=== PATIENT | male | born 1960 | race African-American/Black ===

== ENCOUNTER 2018-02-18 12:55 | Inpatient (IN) | payer OTHER ==
[~2018-02-18] VITALS: Ht 180.3 cm; Wt 79.8 kg
[2018-02-18] MEDS ORDERED: LITHIUM (13:00)
[2018-02-18] MEDS ORDERED: CHLORDIAZEPOXIDE 25MG CAPSULE PO ONE (14:15)
[2018-02-18] MEDS ORDERED: LORAZEPAM 2MG/ML CPJ IV ONE (14:15)
[2018-02-18 14:17] LABS: BASOPHILS % 0.3 % (0.0-2.0); EOSINOPHILS % 0.7 % (0.0-5.0); HEMATOCRIT. 39.6 % (42.0-52.0); HEMOGLOBIN. 13.5 g/dL (14.0-18.0); MEAN CORPUSCULAR HEMOGLOBIN 31.8 pg (28.0-32.0); MEAN CORPUSCULAR VOLUME 93.3 fL (80.0-94.0); MEAN PLATELET VOLUME 8.4 fl (7.4-10.4); MONOCYTES % 5.3 % (2.0-8.0); NEUTROPHILS % 73.7 % (40.0-76.0); PLATELET 165 x1000/uL (130-400); RED BLOOD CELL COUNT 4.24 mill/uL (4.7-6.1); RED CELL DISTRIBUTION WIDTH 18.2 % (11.6-14.6)
[2018-02-18 14:19] LABS: CHLORIDE 93 mEq/L (98-107)
[2018-02-18 14:26] LABS: ETHANOL BLOOD < 10 mg/dL
[2018-02-18 14:32] LABS: PHENOBARBITAL < 2.1 ug/mL (15.0-40.0)
[2018-02-18 14:33] LABS: CARBAMAZEPINE < 0.5 ug/mL (4-12)
[2018-02-18] MEDS ORDERED: LEVETIRACETAM 1000MG/100ML 100 ML IV ONE (15:30)
[2018-02-18] MEDS ORDERED: MULTIVITAMINS,THER W-MINERALS TABLET PO STA (15:47)
[2018-02-18 18:32] LABS: CLARITY URINE CLEAR (CLEAR); COLOR URINE YELLOW (YELLOW); KETONES URINE 3+ (NEGATIVE); LEUKOCYTE ESTERASE URINE NEGATIVE (NEGATIVE); NITRITE URINE NEGATIVE (NEGATIVE); OCCULT BLOOD URINE 2+ (NEGATIVE); PH URINE 6.5 (4.5-8.0); PROTEIN URINE 4+ (NEGATIVE)
[2018-02-18] MEDS ORDERED: ACETAMINOPHEN 325MG TABLET PO PRN (18:45)
[2018-02-18] MEDS ORDERED: CLONIDINE 0.1MG TABLET PO PRN (18:45)
[2018-02-18] MEDS ORDERED: DIPHENHYDRAMINE 50MG/ML VIAL IV PRN (18:45)
[2018-02-18] MEDS ORDERED: MVI, ADULT NO.1 10 ML, FOLIC ACID 1 MG, THIAMINE HCL 100 MG in SODIUM CHLORIDE 0.9% 1,0... IV SCH ×4 (18:45)
[2018-02-18] MEDS ORDERED: ONDANSETRON HCL 4MG/2ML VIAL IV PRN (18:45)
[2018-02-18 18:49] LABS: *AMPHETAMINES SCREEN URINE NEGATIVE (NEGATIVE); *BARBITURATES SCREEN URINE NEGATIVE (NEGATIVE); *BENZODIAZEPINES SCREEN URINE NEGATIVE (NEGATIVE); *COCAINE SCREEN URINE NEGATIVE (NEGATIVE); METHADONE URINE SCREEN NEGATIVE (NEGATIVE); OPIATES URINE SCREEN PRESUMTIVE POSITIVE (NEGATIVE)
[2018-02-18 18:50] LABS: CANNABINOID URINE SCREEN NEGATIVE (NEGATIVE); PHENCYCLIDINE URINE SCREEN NEGATIVE (NEGATIVE)
[2018-02-18] MEDS ORDERED: HYDRALAZINE 20MG/ML VIAL IV PRN (19:00)
[2018-02-18] MEDS ORDERED: MAGNESIUM/ALUMINUM HYDROXIDE/SIMETHICONE 30ML UDC PO PRN (19:15)
[2018-02-18] MEDS ORDERED: MAGNESIUM 2 G PREMIX 50 ML IV ONE (19:30)
[2018-02-18] MEDS: LORAZEPAM 2MG/ML CPJ IV PRN (21:45)
[2018-02-18 23:00] VITALS: BP 151/107
[2018-02-18] MEDS ORDERED: DEXTROSE 50% WATER 50ML SYRINGE IV PRN (23:45)
[2018-02-19] VITALS (7 sets, daily range): BP systolic 124–151; BP diastolic 87–107
[2018-02-19] MEDS: LORAZEPAM 2MG/ML CPJ IV PRN (00:48)
[2018-02-19] MEDS: CHLORDIAZEPOXIDE 25MG CAPSULE PO SCH ×4 (05:48→21:46)
[2018-02-19] MEDS: OMEPRAZOLE 20MG CAPSULE EXTENDED RELEASE PO SCH ×2 (06:18)
[2018-02-19] MEDS: SODIUM CHL 0.9% + KCL 20MEQ/L 1,000 ML IV SCH ×2 (06:29→21:46)
[2018-02-19] MEDS: INSULIN LISPRO 100 UNITS/ML SUBCUT SCH ×3 (06:40→16:39)
[2018-02-19] MEDS: BLOOD SUGAR DIAGNOSTIC STRIP TEST SCH ×3 (06:40→16:38)
[2018-02-19 07:20] LABS: BASOPHILS % 0.4 % (0.0-2.0); EOSINOPHILS % 0.8 % (0.0-5.0); HEMATOCRIT. 38.1 % (42.0-52.0); LYMPHOCYTES % 30.2 % (20.0-50.0); MEAN CORPUSCULAR HEMOGLOBIN 31.5 pg (28.0-32.0); MEAN CORPUSCULAR VOLUME 92.3 fL (80.0-94.0); MEAN PLATELET VOLUME 8.4 fl (7.4-10.4); MONOCYTES % 8.3 % (2.0-8.0); NEUTROPHILS % 60.3 % (40.0-76.0); PLATELET 150 x1000/uL (130-400); RED BLOOD CELL COUNT 4.13 mill/uL (4.7-6.1); RED CELL DISTRIBUTION WIDTH 18.2 % (11.6-14.6)
[2018-02-19 07:51] LABS: CHLORIDE 100 mEq/L (98-107)
[2018-02-19 08:01] LABS: PHOSPHORUS 1.5 mg/dL (2.5-4.9)
[2018-02-19] MEDS: AMLODIPINE 5MG TABLET PO SCH ×2 (08:24→21:46)
[2018-02-19] MEDS ORDERED: LEVETIRACETAM 500MG PREMIX 100 ML IV SCH (09:00)
[2018-02-19] MEDS ORDERED: POTASSIUM CHLORIDE 20MEQ TABLET SR PO NR (11:00)
[2018-02-19] MEDS ORDERED: POTASSIUM PHOS,M-BASIC-D-BASIC 20 MMOL in DEXT 5% WATER 243.3333 ML IV NR (12:30)
[2018-02-19] MEDS: FAMOTIDINE 20MG TABLET PO SCH (21:46)
[2018-02-19] MEDS: LEVETIRACETAM 500MG PREMIX 100 ML IV SCH (22:46)
[2018-02-20] VITALS (7 sets, daily range): BP systolic 117–141; BP diastolic 59–93
[2018-02-20] MEDS: CHLORDIAZEPOXIDE 25MG CAPSULE PO SCH ×3 (06:52→20:53)
[2018-02-20 08:14] LABS: BASOPHILS % 0.8 % (0.0-2.0); CHLORIDE 107 mEq/L (98-107); EOSINOPHILS % 2.5 % (0.0-5.0); HEMATOCRIT. 35.4 % (42.0-52.0); LYMPHOCYTES % 40.7 % (20.0-50.0); MEAN CORPUSCULAR HEMOGLOBIN 31.6 pg (28.0-32.0); MEAN CORPUSCULAR VOLUME 93.1 fL (80.0-94.0); MONOCYTES % 7.7 % (2.0-8.0); NEUTROPHILS % 48.3 % (40.0-76.0); PLATELET 139 x1000/uL (130-400); RED CELL DISTRIBUTION WIDTH 18.6 % (11.6-14.6)
[2018-02-20 08:24] LABS: PHOSPHORUS 2.2 mg/dL (2.5-4.9)
[2018-02-20] MEDS: LEVETIRACETAM 500MG PREMIX 100 ML IV SCH (09:00)
[2018-02-20] MEDS: FAMOTIDINE 20MG TABLET PO SCH ×2 (09:00→20:53)
[2018-02-20] MEDS: AMLODIPINE 5MG TABLET PO SCH ×2 (09:00→20:53)
[2018-02-20] MEDS ORDERED: POTASSIUM CHLORIDE 20MEQ TABLET SR PO NR (10:30)
[2018-02-20] MEDS ORDERED: MAGNESIUM 2 G PREMIX 50 ML IV NR (12:00)
[2018-02-20] MEDS ORDERED: POTASSIUM PHOS,M-BASIC-D-BASIC 20 MMOL in DEXT 5% WATER 243.3333 ML IV SCH (12:00)
== END 2018-02-21 00:01 | disposition short-term general hospital (02) | DRG 100 ==
LOC: ER 13:09 → CANRESERV 20:58 → ENRESERV 20:58 → UNDOADMIN 23:10 → 8WST 23:10 → CANBEDREQ 02-19 00:42
PROVIDERS: ADMIT Internal Medicine; ATTEND Internal Medicine
DX: G40.909 Epilepsy, unspecified, not intractable, without status epilepticus (principal); G92 Toxic encephalopathy; F10.231 Alcohol dependence with withdrawal delirium; E87.1 Hypo-osmolality and hyponatremia; W18.39XA Other fall on same level, initial encounter; E83.42 Hypomagnesemia; E87.6 Hypokalemia; I10 Essential (primary) hypertension; Z72.0 Tobacco use; Z79.899 Other long term (current) drug therapy; Y93.89 Activity, other specified; Y92.89 Other specified places as the place of occurrence of the external cause; Y99.8 Other external cause status
CPT/HCPCS: 36415; 70486; 80048; 80053; 80156; 80165; 80184; 80185; 80305; 81003; 82962; 83036; 83735; 84100; 85025; 93970; G0482; J1953; J2060; J3411; J3475; J3480; J3490; J7030; J7040; J7060

== ENCOUNTER 2018-07-03 09:07 | Emergency (ER) | payer MEDICAID ==
[~2018-07-03] VITALS: Ht 182.9 cm; Wt 67.0 kg
[~2018-07-03 09:07] MED LIST: LITHIUM PO
[2018-07-03 13:21] LABS: BASOPHILS % 1.1 % (0.0-2.0); EOSINOPHILS % 2.1 % (0.0-5.0); HEMATOCRIT. 39.1 % (42.0-52.0); HEMOGLOBIN. 13.1 g/dL (14.0-18.0); LYMPHOCYTES % 62.1 % (20.0-50.0); MEAN CORPUSCULAR HEMOGLOBIN 32.4 pg (28.0-32.0); MEAN CORPUSCULAR VOLUME 96.5 fL (80.0-94.0); MEAN PLATELET VOLUME 7.6 fl (7.4-10.4); MONOCYTES % 6.7 % (2.0-8.0); PLATELET 173 x1000/uL (130-400); RED BLOOD CELL COUNT 4.05 mill/uL (4.7-6.1); RED CELL DISTRIBUTION WIDTH 17.7 % (11.6-14.6)
[2018-07-03 13:33] LABS: CHLORIDE 107 mEq/L (98-107)
[2018-07-03 13:42] LABS: CREATINE KINASE 242 IU/L (39-308)
[2018-07-03 14:04] LABS: ETHANOL BLOOD 475 mg/dL
[2018-07-03 17:11] VITALS: BP 125/87
== END 2018-07-03 17:13 | disposition home or self-care (01) ==
LOC: ER 09:07
DX: F10.129 Alcohol abuse with intoxication, unspecified (principal); Y90.8 Blood alcohol level of 240 mg/100 ml or more; R03.0 Elevated blood-pressure reading, without diagnosis of hypertension; R73.9 Hyperglycemia, unspecified
CPT/HCPCS: 36415; 70450; 80053; 82550; 82962; 85025; 99285; G0482; J7030; Z7610

== ENCOUNTER 2018-11-05 18:36 | Inpatient (IN) | payer MEDICAID ==
[~2018-11-05] VITALS: Ht 172.7 cm; Wt 71.0 kg
[2018-11-05] MEDS ORDERED: SODIUM CHLORIDE 0.9% 1,000 ML IV ONE (18:47)
[2018-11-05] MEDS ORDERED: ADENOSINE 3 MG/ML 2ML VIAL IV ONE (18:48)
[2018-11-05] MEDS ORDERED: DILTIAZEM HCL 5MG/ML 5ML VIAL IV ONE (19:00)
[2018-11-05 19:33] LABS: BASOPHILS % 0.4 % (0.0-2.0); CHLORIDE 99 mEq/L (98-107); HEMATOCRIT. 35.5 % (42.0-52.0); HEMOGLOBIN. 11.9 g/dL (14.0-18.0); LYMPHOCYTES % 13.3 % (20.0-50.0); MEAN CORPUSCULAR HEMOGLOBIN 31.9 pg (28.0-32.0); MEAN CORPUSCULAR VOLUME 95.4 fL (80.0-94.0); MEAN PLATELET VOLUME 8.1 fl (7.4-10.4); MONOCYTES % 5.5 % (2.0-8.0); NEUTROPHILS % 80.8 % (40.0-76.0); PLATELET 131 x1000/uL (130-400); RED BLOOD CELL COUNT 3.71 mill/uL (4.7-6.1); RED CELL DISTRIBUTION WIDTH 14.9 % (11.6-14.6)
[2018-11-05 19:35] LABS: INR 1.1; PROTHROMBIN TIME 10.8 sec (9.1-11.1)
[2018-11-05 19:37] LABS: ETHANOL BLOOD < 10 mg/dL
[2018-11-05] MEDS ORDERED: SODIUM CHLORIDE 0.9% 1000ML BAG (SEPSIS BOLUS) IV ONE (20:00)
[2018-11-05 20:37] LABS: CLARITY URINE CLEAR (CLEAR); COLOR URINE YELLOW (YELLOW); KETONES URINE TRACE (NEGATIVE); LEUKOCYTE ESTERASE URINE NEGATIVE (NEGATIVE); NITRITE URINE NEGATIVE (NEGATIVE); OCCULT BLOOD URINE 1+ (NEGATIVE); PROTEIN URINE 2+ (NEGATIVE); UROBILINOGEN URINE 0.2 E.U./dL (0.2-1.0)
[2018-11-05 22:45] VITALS: BP 179/96
[2018-11-05 23:00] VITALS: BP 172/117
[2018-11-05] MEDS ORDERED: ASPIRIN 325MG EC TABLET PO ONE (23:00)
[2018-11-05] MEDS ORDERED: LORA-250 MT (23:29)
[2018-11-05] MEDS ORDERED: AMLO2.5T45 MT (23:30)
[2018-11-05] MEDS ORDERED: CLONIDINE 0.1MG TABLET PO PRN (23:30)
[2018-11-05] MEDS ORDERED: HYDRALAZINE 20MG/ML VIAL IV PRN (23:30)
[2018-11-05] MEDS ORDERED: ONDANSETRON HCL 4MG/2ML INJ IV PRN (23:30)
[2018-11-05] MEDS ORDERED: ACETAMINOPHEN 325MG TABLET PO PRN (23:30)
[2018-11-05] MEDS: LORAZEPAM 2MG/ML CPJ IV PRN (23:51)
[2018-11-06] MEDS ORDERED: MVI, ADULT NO.1 10 ML, FOLIC ACID 1 MG, THIAMINE HCL 100 MG in SODIUM CHLORIDE 0.9% 1,0... IV NR ×4 (02:00)
[2018-11-06] MEDS ORDERED: LEVETIRACETAM 500 MG in SODIUM CHLORIDE 0.9% 100 ML IV SCH (02:45)
[2018-11-06 04:00] VITALS: BP 143/92
[2018-11-06 05:00] VITALS: BP 142/78
[2018-11-06] MEDS: LEVETIRACETAM 500 MG in SODIUM CHLORIDE 0.9% 100 ML IV SCH ×2 (05:09→22:09)
[2018-11-06] MEDS: DILTIAZEM HCL 90MG TABLET PO SCH ×3 (05:09→22:00)
[2018-11-06] MEDS: LORAZEPAM 2MG/ML CPJ IV PRN (06:46)
[2018-11-06 07:04] LABS: BASOPHILS % 0.4 % (0.0-2.0); EOSINOPHILS % 0.2 % (0.0-5.0); HEMATOCRIT. 35.6 % (42.0-52.0); HEMOGLOBIN. 11.9 g/dL (14.0-18.0); LYMPHOCYTES % 37.3 % (20.0-50.0); MEAN CORPUSCULAR HEMOGLOBIN 31.5 pg (28.0-32.0); MEAN CORPUSCULAR VOLUME 94.8 fL (80.0-94.0); MEAN PLATELET VOLUME 8.6 fl (7.4-10.4); MONOCYTES % 7.8 % (2.0-8.0); NEUTROPHILS % 54.3 % (40.0-76.0); PLATELET 116 x1000/uL (130-400); RED BLOOD CELL COUNT 3.76 mill/uL (4.7-6.1)
[2018-11-06 07:54] LABS: CHLORIDE 99 mEq/L (98-107)
[2018-11-06 08:00] VITALS: BP 124/75
[2018-11-06 08:07] LABS: PHOSPHORUS 3.2 mg/dL (2.5-4.9)
[2018-11-06] MEDS ORDERED: POTASSIUM CHLORIDE 20MEQ/PACKET PO NR ×2 (09:30→14:00)
[2018-11-06] MEDS: LOSARTAN POTASSIUM 50 MG TABLET PO SCH (09:45)
[2018-11-06] MEDS: DEXT 5%/0.45% NACL KCL 40MEQ/L 1,000 ML IV SCH ×2 (09:46→22:09)
[2018-11-06] MEDS ORDERED: MAGNESIUM 2 G PREMIX 50 ML IV NR (11:00)
[2018-11-06 12:00] VITALS: BP 124/79
[2018-11-06 16:00] VITALS: BP 124/84
[2018-11-06] MEDS ORDERED: POTASSIUM CHLORIDE 20MEQ TABLET SR PO NR (18:00)
[2018-11-06 20:00] VITALS: BP 105/71
[2018-11-07] VITALS (7 sets, daily range): BP systolic 102–142; BP diastolic 71–94
[2018-11-07] MEDS: LORAZEPAM 2MG/ML CPJ IV PRN ×3 (02:44→20:53)
[2018-11-07] MEDS: DIPHENHYDRAMINE 50MG/ML VIAL IV PRN ×2 (03:49→20:58)
[2018-11-07] MEDS: DILTIAZEM HCL 90MG TABLET PO SCH ×3 (05:13→23:03)
[2018-11-07 07:54] LABS: CHLORIDE 105 mEq/L (98-107)
[2018-11-07] MEDS ORDERED: ENOXAPARIN 40MG/0.4ML SYR SUBCUT SCH (09:00)
[2018-11-07] MEDS: LOSARTAN POTASSIUM 50 MG TABLET PO SCH (09:36)
[2018-11-07] MEDS: LEVETIRACETAM 500 MG in SODIUM CHLORIDE 0.9% 100 ML IV SCH (09:36)
[2018-11-07] MEDS: DEXT 5%/0.45% NACL KCL 40MEQ/L 1,000 ML IV SCH (09:37)
[2018-11-07] MEDS ORDERED: POTASSIUM CHLORIDE 20MEQ TABLET SR PO NR ×2 (10:30)
[2018-11-07] MEDS ORDERED: MAGNESIUM 2 G PREMIX 50 ML IV NR ×2 (12:00)
[2018-11-07] MEDS ORDERED: LEVETIRACETAM 500MG TABLET PO SCH (21:00)
== END 2018-11-07 23:33 | disposition short-term general hospital (02) | DRG 53 ==
LOC: ER 18:53 → 5WST 20:29 → EDBEDREQ 20:41 → EDBEDREQTM 20:41 → ENRESERV 21:25
PROVIDERS: ADMIT Internal Medicine; ATTEND Internal Medicine
DX: G40.909 Epilepsy, unspecified, not intractable, without status epilepticus (principal); F10.231 Alcohol dependence with withdrawal delirium; I47.1 Supraventricular tachycardia; E87.6 Hypokalemia; I10 Essential (primary) hypertension; J45.909 Unspecified asthma, uncomplicated; Z72.0 Tobacco use
CPT/HCPCS: 36415; 71045; 80048; 83605; 83735; 83880; 84100; 84484; 93005; 99291; G0482; J0153; J1200; J1650; J1953; J2060; J2405; J3411; J3475; J3490; J7030; J7040; J7050

== ENCOUNTER 2019-02-27 18:04 | Emergency (ER) | payer MEDICAID ==
[~2019-02-27] VITALS: Ht 406.4 cm; Wt 82.0 kg
[~2019-02-27 18:04] MED LIST changes: +AMLO2.5T45 MT; -LITHIUM PO; +LORA-250 MT
[2019-02-27] MEDS ORDERED: LEVETIRACETAM 1000MG/100ML 100 ML IV ONE (18:30)
[2019-02-27] MEDS ORDERED: CLONIDINE 0.2MG TABLET PO ONE (18:30)
[2019-02-27 19:11] LABS: BASOPHILS % 0.3 % (0.0-2.0); EOSINOPHILS % 0.1 % (0.0-5.0); HEMATOCRIT. 34.6 % (42.0-52.0); HEMOGLOBIN. 11.7 g/dL (14.0-18.0); LYMPHOCYTES % 7.7 % (20.0-50.0); MEAN CORPUSCULAR HEMOGLOBIN 31.2 pg (28.0-32.0); MEAN PLATELET VOLUME 8.5 fl (7.4-10.4); MONOCYTES % 3.6 % (2.0-8.0); NEUTROPHILS % 88.3 % (40.0-76.0); PLATELET 105 x1000/uL (130-400); RED BLOOD CELL COUNT 3.76 mill/uL (4.7-6.1); RED CELL DISTRIBUTION WIDTH 16.9 % (11.6-14.6)
[2019-02-27 19:13] LABS: CHLORIDE 99 mEq/L (98-107)
[2019-02-27 19:17] LABS: ETHANOL BLOOD < 10 mg/dL
[2019-02-27] MEDS ORDERED: ONDANSETRON HCL 4MG/2ML INJ IV ONE (19:45)
[2019-02-27] MEDS ORDERED: LIDOCAINE 1%/EPI 1:100,000 10 ML VIAL IJ ONE (20:45)
[2019-02-27] MEDS ORDERED: HYDRALAZINE 20MG/ML VIAL IV ONE (21:30)
[2019-02-27] MEDS ORDERED: ETOMIDATE 2MG/ML 10ML VIAL IV ONE (21:30)
[2019-02-27] MEDS ORDERED: SODIUM CHLORIDE 0.9% 1000ML BAG (SEPSIS BOLUS) IV ONE (21:30)
[2019-02-27] MEDS ORDERED: CEFTRIAXONE 1 G PREMIX 50 ML IV ONE (21:30)
[2019-02-27] MEDS ORDERED: SUCCINYLCHOLINE CHLORIDE 200MG/10ML IV ONE (21:30)
[2019-02-27] MEDS ORDERED: PROPOFOL 10MG/ML 100ML 100 ML IV ONE (21:48)
[2019-02-27] MEDS ORDERED: LORAZEPAM 2MG/ML CPJ IV ONE (22:15)
[2019-02-27 23:29] LABS: BG BASE EXCESS 2.2 mmol/L (-2.0-2.0); BG CARBOXYHEMOGLOBIN 0.3 % (0.5-1.5); BG DEOXYHEMOGLOBIN 0.5 % (0.0-5.0); BG FRACTION INSPIRED OXYGEN 100; BG HCO3 ACT 26.3 mmol/L (22.0-26.0); BG METHEMOGLOBIN 0.6 % (0.0-1.5); BG OXYGEN SATURATION 99.5 % (92.0-98.5); BG OXYHEMOGLOBIN 98.6 % (94.0-97.0); BG PCO2 39.4 mmHg (35.0-45.0); BG PH 7.443 (7.350-7.450); BG PO2 317.1 mmHg (75.0-100.0); BG SAMPLE SITE RIGHT BRACHIAL; BG TIDAL VOLUME(mL) 450 mL; BG TOTAL HEMOGLOBIN 11.1 g/dL (12.0-18.0); BG VENT MODE VENT - A/C; BG VENT RATE 24 set
[2019-02-28 01:52] VITALS: BP 126/83
[2019-02-28] MEDS ORDERED: MANNITOL 12.5G (25%) VIAL 50ML IV ONE (02:00)
[2019-02-28] MEDS ORDERED: PROPOFOL 10MG/ML 100ML 100 ML IV ONE (02:41)
== END 2019-02-28 03:58 | disposition short-term general hospital (02) ==
LOC: ER 18:04 → CANBEDREQ 02-28 04:27
DX: S02.40EA Zygomatic fracture, right side, initial encounter for closed fracture (principal); S01.511A Laceration without foreign body of lip, initial encounter; R56.9 Unspecified convulsions; I62.00 Nontraumatic subdural hemorrhage, unspecified; I60.9 Nontraumatic subarachnoid hemorrhage, unspecified; I16.9 Hypertensive crisis, unspecified; I10 Essential (primary) hypertension; R79.89 Other specified abnormal findings of blood chemistry; Z79.899 Other long term (current) drug therapy; X58.XXXA Exposure to other specified factors, initial encounter; Y93.89 Activity, other specified; Y92.89 Other specified places as the place of occurrence of the external cause; Y99.8 Other external cause status
CPT/HCPCS: 12011; 31500; 36415; 36600; 70450; 70487; 71045; 72125; 80053; 80320; 82375; 82805; 83605; 84484; 85025; 87040; 93005; 94002; 96374; 96375; 99291; J0330; J0696; J1953; J2150; J2405; J2704; J3490; J7030; Z7610; A4315; G0480

== ENCOUNTER 2020-06-16 14:10 | Emergency (ER) | payer MEDICAID ==
[~2020-06-16] VITALS: Ht 177.8 cm; Wt 77.0 kg
[2020-06-16] MEDS ORDERED: LABETALOL 5MG/ML SYR 20 MG/4 ML SYRINGE IV ONE (14:30)
[2020-06-16] MEDS ORDERED: LORAZEPAM 2MG/ML CPJ IV ONE (14:45)
[2020-06-16 14:50] LABS: BASOPHILS % 0.4 % (0.0-2.0); EOSINOPHILS % 0.4 % (0.0-5.0); HEMATOCRIT. 37.5 % (42.0-52.0); HEMOGLOBIN. 12.4 g/dL (14.0-18.0); LYMPHOCYTES % 29.5 % (20.0-50.0); MEAN CORPUSCULAR HEMOGLOBIN 29.1 pg (28.0-32.0); MEAN CORPUSCULAR VOLUME 88.3 fL (80.0-94.0); MEAN PLATELET VOLUME 7.6 fl (7.4-10.4); MONOCYTES % 4.2 % (2.0-8.0); NEUTROPHILS % 65.5 % (40.0-76.0); PLATELET 208 x1000/uL (130-400); RED BLOOD CELL COUNT 4.25 mill/uL (4.7-6.1); RED CELL DISTRIBUTION WIDTH 13.3 % (11.6-14.6)
[2020-06-16 14:58] LABS: CHLORIDE 106 mEq/L (98-107)
[2020-06-16 15:02] LABS: CLARITY URINE CLEAR (CLEAR); COLOR URINE YELLOW (YELLOW); KETONES URINE NEGATIVE (NEGATIVE); LEUKOCYTE ESTERASE URINE NEGATIVE (NEGATIVE); NITRITE URINE NEGATIVE (NEGATIVE); OCCULT BLOOD URINE NEGATIVE (NEGATIVE); PROTEIN URINE 2+ (NEGATIVE); SPECIFIC GRAVITY URINE 1.021 (1.005-1.030); UROBILINOGEN URINE 0.2 E.U./dL (0.2-1.0)
[2020-06-16 15:04] LABS: ETHANOL BLOOD 67 mg/dL
[2020-06-16 15:29] LABS: *AMPHETAMINES SCREEN URINE NEGATIVE (NEGATIVE); *BARBITURATES SCREEN URINE NEGATIVE (NEGATIVE); *BENZODIAZEPINES SCREEN URINE NEGATIVE (NEGATIVE); *COCAINE SCREEN URINE NEGATIVE (NEGATIVE); METHADONE URINE SCREEN NEGATIVE (NEGATIVE); PHENCYCLIDINE URINE SCREEN NEGATIVE (NEGATIVE)
[2020-06-16 15:30] LABS: CANNABINOID URINE SCREEN NEGATIVE (NEGATIVE); OPIATES URINE SCREEN PRESUMTIVE POSITIVE (NEGATIVE)
[2020-06-16] MEDS ORDERED: HYDRALAZINE 20MG/ML VIAL IV ONE (16:15)
[2020-06-16] MEDS ORDERED: HYDRALAZINE 20MG/ML VIAL ONE (16:18)
[2020-06-16 16:49] VITALS: BP 194/117
[2020-06-16] MEDS ORDERED: AMLO10TA4 PO (23:38)
[2020-06-16] MEDS ORDERED: KEPP500 PO (23:38)
[2020-06-16] MEDS ORDERED: CYM20 PO (23:38)
[2020-06-16] MEDS ORDERED: METO-385 PO (23:38)
[2020-06-16] MEDS ORDERED: ATOR20TA65 PO (23:38)
[2020-06-16] MEDS ORDERED: LISI-604 PO (23:38)
[2020-06-16] MEDS ORDERED: FOLI-43 PO (23:38)
== END 2020-06-16 17:44 | disposition short-term general hospital (02) ==
LOC: ER 14:19
DX: R06.00 Dyspnea, unspecified (principal); I16.0 Hypertensive urgency; I10 Essential (primary) hypertension; R56.9 Unspecified convulsions; Z86.73 Personal history of transient ischemic attack (TIA), and cerebral infarction without residual deficits
CPT/HCPCS: 36415; 71045; 80053; 80305; 80320; 81003; 83690; 83735; 83880; 84484; 85025; 93005; 96374; 96375; 99285; J0360; J2060; J3490; G0480

== ENCOUNTER 2020-06-16 17:42 | Inpatient (IN) | payer MEDICAID ==
[~2020-06-16] VITALS: Ht 180.3 cm; Wt 76.3 kg
[2020-06-16] MEDS ORDERED: SODIUM CHLORIDE 0.9% 1,000 ML IV ONE (17:48)
[2020-06-16] MEDS ORDERED: LEVETIRACETAM 1000MG/100ML 100 ML IV ONE (18:00)
[2020-06-16] MEDS ORDERED: LORAZEPAM 2MG/ML CPJ IV ONE (18:00)
[2020-06-16] MEDS ORDERED: LABETALOL 5MG/ML SYR 20 MG/4 ML SYRINGE IV ONE (18:00)
[2020-06-16 18:24] LABS: BASOPHILS % 0.4 % (0.0-2.0); EOSINOPHILS % 0.2 % (0.0-5.0); HEMOGLOBIN. 12.4 g/dL (14.0-18.0); LYMPHOCYTES % 26.9 % (20.0-50.0); MEAN CORPUSCULAR HEMOGLOBIN 29.3 pg (28.0-32.0); MEAN CORPUSCULAR VOLUME 89.5 fL (80.0-94.0); MONOCYTES % 4.2 % (2.0-8.0); NEUTROPHILS % 68.3 % (40.0-76.0); PLATELET 201 x1000/uL (130-400); RED BLOOD CELL COUNT 4.24 mill/uL (4.7-6.1); RED CELL DISTRIBUTION WIDTH 13.3 % (11.6-14.6)
[2020-06-16 18:32] LABS: CHLORIDE 105 mEq/L (98-107)
[2020-06-16 18:35] LABS: ETHANOL BLOOD < 10 mg/dL
[2020-06-16 18:40] LABS: CREATINE KINASE 341 IU/L (39-308)
[2020-06-16] MEDS ORDERED: ONDANSETRON HCL 4MG/2ML INJ IV PRN (19:30)
[2020-06-16] MEDS ORDERED: LORAZEPAM 2MG/ML CPJ IV PRN (19:30)
[2020-06-16] MEDS ORDERED: CLONIDINE 0.1MG TABLET PO PRN (19:30)
[2020-06-16] MEDS: LOSARTAN POTASSIUM 100 MG TABLET PO SCH (19:30)
[2020-06-16] MEDS ORDERED: CHLORDIAZEPOXIDE 25MG CAPSULE PO ONE (19:45)
[2020-06-16] MEDS: LEVETIRACETAM 500MG TABLET PO SCH (21:00)
[2020-06-16 22:15] VITALS: BP 184/96
[2020-06-16] MEDS ORDERED: CYM20 PO (23:38)
[2020-06-16] MEDS ORDERED: ATOR20TA65 PO (23:38)
[2020-06-16] MEDS ORDERED: METO-385 PO (23:38)
[2020-06-16] MEDS ORDERED: FOLI-43 PO (23:38)
[2020-06-16] MEDS ORDERED: LISI-604 PO (23:38)
[2020-06-16] MEDS ORDERED: KEPP500 PO (23:38)
[2020-06-16] MEDS ORDERED: AMLO10TA4 PO (23:38)
[2020-06-16] MEDS: HYDRALAZINE 20MG/ML VIAL IV PRN (23:45)
[2020-06-16] MEDS ORDERED: PNEUMOCOCCAL 23-VAL P-SAC VAC 0.5 ML IM ONE (23:45)
[2020-06-17] VITALS (11 sets, daily range): BP systolic 128–177; BP diastolic 77–98
[2020-06-17] MEDS ORDERED: AMLODIPINE 10MG TABLET PO SCH (08:00)
[2020-06-17] MEDS: LOSARTAN POTASSIUM 100 MG TABLET PO SCH (08:08)
[2020-06-17] MEDS: LEVETIRACETAM 500MG TABLET PO SCH (08:09)
[2020-06-17] MEDS ORDERED: MULTIVITAMINS,THER W-MINERALS TABLET PO SCH (09:00)
[2020-06-17] MEDS ORDERED: FOLIC ACID 1MG TABLET PO SCH (09:00)
[2020-06-17] MEDS ORDERED: THIAMINE HCL 100MG TABLET PO SCH (09:00)
[2020-06-17] MEDS ORDERED: CHLORDIAZEPOXIDE 25MG CAPSULE PO SCH (14:30)
[2020-06-17] MEDS: HYDRALAZINE 20MG/ML VIAL IV PRN (17:44)
== END 2020-06-17 19:20 | disposition short-term general hospital (02) | DRG 53 ==
LOC: ER 17:42 → 3WST 18:34 → ENRESERV 21:04
PROVIDERS: ADMIT Internal Medicine; ATTEND Internal Medicine
DX: G40.909 Epilepsy, unspecified, not intractable, without status epilepticus (principal); D64.9 Anemia, unspecified; F10.239 Alcohol dependence with withdrawal, unspecified; I10 Essential (primary) hypertension; I16.0 Hypertensive urgency; Y90.3 Blood alcohol level of 60-79 mg/100 ml; Z86.73 Personal history of transient ischemic attack (TIA), and cerebral infarction without residual deficits
CPT/HCPCS: 36415; 80053; 80320; 82550; 82962; 84484; 85025; 93005; 99291; J0360; J1953; J2060; J3490; J7030; G0480

== ENCOUNTER 2020-11-28 14:26 | Inpatient (IN) | payer MEDICAID ==
[~2020-11-28] VITALS: Ht 180.3 cm; Wt 80.7 kg
[~2020-11-28 14:26] MED LIST changes: +AMLO10TA4 PO; -AMLO2.5T45 MT; +ATOR20TA65 PO; +CYM20 PO; +FOLI-43 PO; +KEPP500 PO; +LISI-604 PO; -LORA-250 MT; +METO-385 PO
[2020-11-28 16:29] LABS: BASOPHILS % 0.7 % (0.0-2.0); EOSINOPHILS % 0.9 % (0.0-5.0); HEMOGLOBIN. 13.8 g/dL (14.0-18.0); LYMPHOCYTES % 58.4 % (20.0-50.0); MEAN CORPUSCULAR HEMOGLOBIN 30.3 pg (28.0-32.0); MEAN CORPUSCULAR VOLUME 92.2 fL (80.0-94.0); MEAN PLATELET VOLUME 7.2 fl (7.4-10.4); MONOCYTES % 4.1 % (2.0-8.0); NEUTROPHILS % 35.9 % (40.0-76.0); PLATELET 189 x1000/uL (130-400); RED BLOOD CELL COUNT 4.56 mill/uL (4.7-6.1)
[2020-11-28 16:35] LABS: CHLORIDE 102 mEq/L (98-107)
[2020-11-28 16:54] LABS: PARTIAL THROMBOPLASTIN TIME 27.1 sec (23.4-31.0)
[2020-11-28] MEDS ORDERED: DEXAMETHASONE 10 MG/ML VIAL IV ONE (17:00)
[2020-11-28] MEDS ORDERED: AZITHROMYCIN 500 MG in DEXT 5% WATER 250 ML IV ONE (17:00)
[2020-11-28] MEDS ORDERED: CEFTRIAXONE 1 G PREMIX 50 ML IV ONE (17:00)
[2020-11-28 20:53] LABS: CLARITY URINE CLEAR (CLEAR); COLOR URINE YELLOW (YELLOW); KETONES URINE NEGATIVE (NEGATIVE); LEUKOCYTE ESTERASE URINE NEGATIVE (NEGATIVE); NITRITE URINE NEGATIVE (NEGATIVE); OCCULT BLOOD URINE NEGATIVE (NEGATIVE); PROTEIN URINE 2+ (NEGATIVE); SPECIFIC GRAVITY URINE 1.021 (1.005-1.030)
[2020-11-29] MEDS ORDERED: LORAZEPAM 1MG TABLET PO PRN (03:00)
[2020-11-29] MEDS: HALOPERIDOL LACTATE 5MG/ML VIAL IM PRN ×2 (12:03→19:52)
[2020-11-29] MEDS ORDERED: DIPHENHYDRAMINE 50MG/ML VIAL IV PRN (15:15)
[2020-11-29] MEDS ORDERED: LORAZEPAM 2MG/ML CPJ IV PRN (15:15)
[2020-11-29 17:16] VITALS: BP 152/79
[2020-11-29] MEDS: LEVETIRACETAM 500MG TABLET PO SCH (18:30)
[2020-11-29] MEDS: LISINOPRIL 20MG TABLET PO SCH (18:30)
[2020-11-29] MEDS ORDERED: DULOXETINE HCL 20MG DR CAPSULE PO SCH (18:30)
[2020-11-29 20:36] VITALS: BP 159/98
[2020-11-30 04:00] VITALS: BP 155/106
[2020-11-30 06:00] VITALS: BP 130/98
[2020-11-30 08:00] VITALS: BP 150/111
[2020-11-30] MEDS: LEVETIRACETAM 500MG TABLET PO SCH ×2 (08:33→17:00)
[2020-11-30] MEDS: LISINOPRIL 20MG TABLET PO SCH (08:33)
[2020-11-30] MEDS: AMLODIPINE 10MG TABLET PO SCH ×2 (08:34→17:00)
[2020-11-30] MEDS: METOPROLOL TARTRATE 50MG TABLET PO SCH ×2 (08:38→08:44)
[2020-11-30] MEDS ORDERED: FOLIC ACID 1MG TABLET PO SCH (09:00)
[2020-11-30 10:43] LABS: BASOPHILS % 0.3 % (0.0-2.0); EOSINOPHILS % 0.3 % (0.0-5.0); HEMATOCRIT. 39.9 % (42.0-52.0); HEMOGLOBIN. 13.5 g/dL (14.0-18.0); LYMPHOCYTES % 39.9 % (20.0-50.0); MEAN CORPUSCULAR HEMOGLOBIN 30.6 pg (28.0-32.0); MEAN CORPUSCULAR VOLUME 90.4 fL (80.0-94.0); MEAN PLATELET VOLUME 7.2 fl (7.4-10.4); MONOCYTES % 4.4 % (2.0-8.0); NEUTROPHILS % 55.1 % (40.0-76.0); PLATELET 162 x1000/uL (130-400); RED BLOOD CELL COUNT 4.42 mill/uL (4.7-6.1); RED CELL DISTRIBUTION WIDTH 16.1 % (11.6-14.6)
[2020-11-30 11:29] LABS: CHLORIDE 98 mEq/L (98-107)
[2020-11-30 12:00] VITALS: BP 131/88
[2020-11-30] MEDS ORDERED: POTASSIUM CHLORIDE 20MEQ TABLET SR PO SCH (12:30)
[2020-11-30] MEDS ORDERED: LORA-249 MT (12:34)
[2020-11-30 14:56] VITALS: BP 132/92
[2020-11-30 16:00] VITALS: BP 119/86
[2020-11-30] MEDS ORDERED: ATORVASTATIN CALCIUM 20MG TABLET PO SCH (21:00)
== END 2020-11-30 19:02 | disposition home or self-care (01) | DRG 756 ==
LOC: ER 14:26 → MICUSO 18:22 → EDBEDREQTM 18:31 → EDBEDREQ 18:31 → MICUSO 11-29 09:39 → 6WST 11-29 14:41
PROVIDERS: ADMIT Internal Medicine; ATTEND Internal Medicine
DX: F41.0 Panic disorder [episodic paroxysmal anxiety] (principal); I10 Essential (primary) hypertension; G40.909 Epilepsy, unspecified, not intractable, without status epilepticus; F10.10 Alcohol abuse, uncomplicated; Y90.9 Presence of alcohol in blood, level not specified; Z20.822 Contact with and (suspected) exposure to COVID-19; Z79.899 Other long term (current) drug therapy; Z78.1 Physical restraint status; I69.354 Hemiplegia and hemiparesis following cerebral infarction affecting left non-dominant side; I69.328 Other speech and language deficits following cerebral infarction; R06.02 Shortness of breath; G31.2 Degeneration of nervous system due to alcohol; R50.9 Fever, unspecified
CPT/HCPCS: 36415; 71045; 80048; 80053; 81003; 82140; 83605; 83880; 84145; 84484; 85025; 85379; 93005; 99291; J0456; J0696; J1100; J1200; J1630; J2060; J7060; U0003

== ENCOUNTER 2021-05-09 17:30 | Emergency (ER) | payer MEDICAID ==
[~2021-05-09] VITALS: Ht 167.6 cm; Wt 60.0 kg
[~2021-05-09 17:30] MED LIST changes: -LISI-604 PO; +LISI20TA31 PO; +LORA-249 MT
[2021-05-09 18:12] LABS: HEMATOCRIT. 35.9 % (42.0-52.0); HEMOGLOBIN. 12.6 g/dL (14.0-18.0); MEAN CORPUSCULAR HEMOGLOBIN 31.2 pg (28.0-32.0); MEAN CORPUSCULAR VOLUME 88.9 fL (80.0-94.0); PLATELET 118 x1000/uL (130-400); RED BLOOD CELL COUNT 4.04 mill/uL (4.7-6.1); RED CELL DISTRIBUTION WIDTH 18.2 % (11.6-14.6)
[2021-05-09 18:18] LABS: CHLORIDE 98 mEq/L (98-107)
[2021-05-09 19:09] LABS: PLATELET ESTIMATE DECREASED
[2021-05-09] MEDS ORDERED: IOHEXOL-300 100 ML BOTTLE ONE (19:58)
[2021-05-09] MEDS ORDERED: PIPERACILLIN/TAZOBACTAM 3.375GM/50ML PREMIX IV ONE (20:30)
[2021-05-09] MEDS ORDERED: SODIUM CHLORIDE 0.9% 1,000 ML IV ONE ×2 (20:30→21:00)
[2021-05-09] MEDS ORDERED: PIPERACILLIN/TAZ 3.375G PREMIX 50 ML IV NR (20:45)
[2021-05-09] MEDS ORDERED: KCL 20MEQ/100ML PREMIX 100 ML IV ONE (22:15)
[2021-05-10 01:01] VITALS: BP 150/89
== END 2021-05-10 02:00 | disposition short-term general hospital (02) ==
LOC: ER 17:30
DX: A41.9 Sepsis, unspecified organism (principal); R65.20 Severe sepsis without septic shock; K85.90 Acute pancreatitis without necrosis or infection, unspecified; I10 Essential (primary) hypertension; Z86.73 Personal history of transient ischemic attack (TIA), and cerebral infarction without residual deficits; Z79.899 Other long term (current) drug therapy
CPT/HCPCS: 36415; 70450; 74177; 80053; 83605; 83615; 83690; 84484; 85025; 87040; 93005; 96365; 99291; J2543; J3480; J7030; Q9967; Z7610; 71045

== ENCOUNTER 2021-07-02 12:44 | Emergency (ER) | payer MEDICAID ==
[~2021-07-02] VITALS: Ht 172.7 cm; Wt 70.0 kg
[2021-07-02 15:12] LABS: BASOPHILS % 0.8 % (0.0-2.0); EOSINOPHILS % 0.6 % (0.0-5.0); HEMATOCRIT. 39.6 % (42.0-52.0); HEMOGLOBIN. 13.3 g/dL (14.0-18.0); LYMPHOCYTES % 66.7 % (20.0-50.0); MEAN CORPUSCULAR HEMOGLOBIN 32.5 pg (28.0-32.0); MEAN PLATELET VOLUME 8.3 fl (7.4-10.4); MONOCYTES % 5.3 % (2.0-8.0); NEUTROPHILS % 26.6 % (40.0-76.0); PLATELET 285 x1000/uL (130-400); RED BLOOD CELL COUNT 4.08 mill/uL (4.7-6.1); RED CELL DISTRIBUTION WIDTH 15.1 % (11.6-14.6)
[2021-07-02 15:24] LABS: CHLORIDE 110 mEq/L (98-107)
[2021-07-02] MEDS ORDERED: SODIUM CHLORIDE 0.9% 1,000 ML IV ONE (17:00)
[2021-07-02 20:40] VITALS: BP 156/99
== END 2021-07-02 20:42 | disposition short-term general hospital (02) ==
LOC: ER 12:58
DX: K52.9 Noninfective gastroenteritis and colitis, unspecified (principal); I10 Essential (primary) hypertension; Z20.822 Contact with and (suspected) exposure to COVID-19; Z86.73 Personal history of transient ischemic attack (TIA), and cerebral infarction without residual deficits; Z86.718 Personal history of other venous thrombosis and embolism
CPT/HCPCS: 36415; 71045; 74176; 80053; 83690; 83880; 84484; 85025; 87426; 93005; 99285; J7030; A4315

== ENCOUNTER 2021-11-25 18:15 | Emergency (ER) | payer MEDICARE, MEDICAID ==
[~2021-11-25] VITALS: Ht 182.9 cm; Wt 84.0 kg
[2021-11-25 21:09] LABS: BASOPHILS % 0.5 % (0.0-2.0); EOSINOPHILS % 0.2 % (0.0-5.0); HEMATOCRIT. 45.1 % (42.0-52.0); HEMOGLOBIN. 14.5 g/dL (14.0-18.0); LYMPHOCYTES % 22.8 % (20.0-50.0); MEAN CORPUSCULAR HEMOGLOBIN 30.6 pg (28.0-32.0); MEAN CORPUSCULAR VOLUME 95.3 fL (80.0-94.0); MEAN PLATELET VOLUME 7.9 fl (7.4-10.4); MONOCYTES % 3.1 % (2.0-8.0); NEUTROPHILS % 73.4 % (40.0-76.0); PLATELET 258 x1000/uL (130-400); RED BLOOD CELL COUNT 4.74 mill/uL (4.7-6.1); RED CELL DISTRIBUTION WIDTH 19.7 % (11.6-14.6)
[2021-11-25 21:22] LABS: CHLORIDE 114 mEq/L (98-107)
[2021-11-25 22:29] LABS: ETHANOL BLOOD 305 mg/dL
[2021-11-26] MEDS ORDERED: CLONIDINE 0.2MG TABLET PO ONE (06:30)
[2021-11-27 06:00] VITALS: BP 144/92
== END 2021-11-27 15:08 | disposition home or self-care (01) ==
LOC: ER 18:15
DX: G92.9 Unspecified toxic encephalopathy (principal); I10 Essential (primary) hypertension; R51.9 Headache, unspecified; Z86.73 Personal history of transient ischemic attack (TIA), and cerebral infarction without residual deficits; Z98.890 Other specified postprocedural states
CPT/HCPCS: 36415; 80053; 80320; 85025; 99285; G0480

== ENCOUNTER 2023-05-06 12:41 | Emergency (ER) | payer MEDICARE, MEDICAID ==
[~2023-05-06] VITALS: Ht 177.8 cm; Wt 77.0 kg
[2023-05-06 12:42] VITALS: O2SAT 98
[2023-05-06] MEDS ORDERED: DEXTROSE 50% WATER 50ML SYRINGE IV ONE (13:00)
[2023-05-06] MEDS ORDERED: SODIUM CHLORIDE 0.9% 1,000 ML IV ONE (13:00)
[2023-05-06] MEDS ORDERED: LEVETIRACETAM 1000MG PREMIX 100 ML IV ONE (13:15)
[2023-05-06 13:56] LABS: CHLORIDE 113 mEq/L (98-107)
[2023-05-06 13:58] LABS: BASOPHILS % 0.4 % (0.0-2.0); EOSINOPHILS % 0.8 % (0.0-5.0); HEMATOCRIT. 38.5 % (42.0-52.0); HEMOGLOBIN. 12.3 g/dL (14.0-18.0); LYMPHOCYTES % 30.3 % (20.0-50.0); MEAN CORPUSCULAR HEMOGLOBIN 30.9 pg (28.0-32.0); MEAN CORPUSCULAR VOLUME 96.4 fL (80.0-94.0); MEAN PLATELET VOLUME 8.4 fl (7.4-10.4); MONOCYTES % 3.1 % (2.0-8.0); NEUTROPHILS % 65.4 % (40.0-76.0); PLATELET 266 x1000/uL (130-400); RED BLOOD CELL COUNT 3.99 mill/uL (4.7-6.1); RED CELL DISTRIBUTION WIDTH 14.6 % (11.6-14.6)
[2023-05-06 14:06] LABS: ETHANOL BLOOD 230 mg/dL (-10)
[2023-05-06 14:58] VITALS: BP 115/65; PULSE 70; RESP 16; TEMP 98.4
== END 2023-05-06 15:36 | disposition home or self-care (01) ==
LOC: ER 15:03
DX: G40.909 Epilepsy, unspecified, not intractable, without status epilepticus (principal); F10.10 Alcohol abuse, uncomplicated; Y90.7 Blood alcohol level of 200-239 mg/100 ml; I10 Essential (primary) hypertension; Z86.73 Personal history of transient ischemic attack (TIA), and cerebral infarction without residual deficits; Z79.899 Other long term (current) drug therapy
CPT/HCPCS: 80053; 80320; 82962; 83690; 85025; 36415; 96361; 96365; 96375; 99284; J1953; J7030; G0480

== ENCOUNTER 2023-08-27 07:54 | Emergency (ER) | payer MEDICARE, MEDICAID ==
[~2023-08-27] VITALS: Ht 180.3 cm; Wt 77.0 kg
[2023-08-27 08:12] VITALS: TEMP 97.6; O2SAT 98
[2023-08-27 09:39] LABS: BASOPHILS % 0.4 % (0.0-2.0); EOSINOPHILS % 0.5 % (0.0-5.0); HEMATOCRIT. 43.5 % (42.0-52.0); HEMOGLOBIN. 14.2 g/dL (14.0-18.0); LYMPHOCYTES % 29.8 % (20.0-50.0); MEAN CORPUSCULAR HEMOGLOBIN 31.5 pg (28.0-32.0); MEAN CORPUSCULAR HGB CONC 32.7 g/dL (31.0-37.0); MEAN CORPUSCULAR VOLUME 96.5 fL (80.0-94.0); MEAN PLATELET VOLUME 8.2 fl (7.4-10.4); MONOCYTES % 4.3 % (2.0-8.0); PLATELET 214 x1000/uL (130-400); RED CELL DISTRIBUTION WIDTH 15.1 % (11.6-14.6); WHITE BLOOD COUNT 7.8 x1000/uL (4.5-11.0)
[2023-08-27 09:53] LABS: CHLORIDE 107 mEq/L (98-107); INDEX HEMOLYSI 1 (1-3); INDEX ICTERIC 1 (1-4); INDEX LIPEMIC 1 (1-3); POTASSIUM 4.3 mEq/L (3.5-5.1); SODIUM 139 mEq/L (136-145)
[2023-08-27 10:04] LABS: ALANINE AMINOTRANSFERASE 14 IU/L (13-61); ALBUMIN 3.9 g/dL (3.4-5.0); ASPARTATE AMINOTRANSFERASE 16 IU/L (15-37); BILIRUBIN TOTAL 0.4 mg/dL (0.1-1.0); CALCIUM 9.3 mg/dL (8.5-10.1); CARBON DIOXIDE 25 mEq/L (21-32); CREATININE 0.9 mg/dL (0.6-1.3); GLUCOSE 104 mg/dL (70-105); PROTEIN TOTAL 8.3 g/dL (6.0-8.3); UREA NITROGEN BLOOD 10 mg/dL (7-21)
[2023-08-27 16:45] VITALS: BP 144/77; PULSE 71; RESP 16
== END 2023-08-27 16:45 | disposition home or self-care (01) ==
LOC: ER 07:54
DX: S09.90XA Unspecified injury of head, initial encounter (principal); I10 Essential (primary) hypertension; Z86.73 Personal history of transient ischemic attack (TIA), and cerebral infarction without residual deficits; Z79.899 Other long term (current) drug therapy; W18.39XA Other fall on same level, initial encounter; Y93.89 Activity, other specified; Y92.89 Other specified places as the place of occurrence of the external cause; Y99.8 Other external cause status
CPT/HCPCS: 36415; 80053; 85025; 93005; 99284